=== PATIENT | male | born 1965 | race Caucasian/White ===

== ENCOUNTER 2024-05-22 20:08 | Emergency (ER) | payer MEDICAID ==
[~2024-05-22] VITALS: Ht 182.9 cm; Wt 97.3 kg
[2024-05-22] MEDS ORDERED: GNP B-50 COMPL0.4 MG PO (20:30)
[2024-05-22] MEDS ORDERED: DULOXETINE60 MG PO (20:30)
[2024-05-22] MEDS ORDERED: DONEPEZIL HCL10 MG PO (20:30)
[2024-05-22 20:54] LABS: BASO # 0.02 K/mm3 (0.02-0.10); EOS # 0.32 K/mm3 (0.04-0.40); EOS % 3.6 % (0.0-4.0); HEMATOCRIT 47.3 % (42.0-52.0); HEMOGLOBIN 16.2 g/dL (13.5-18.0); LYMPH# 1.85 K/mm3 (1.50-4.00); MEAN CELL VOLUME 92 fl (78-100); MEAN CORPUSCULAR HEMOGLOBIN 31 pg (27-31); MEAN CORPUSCULAR HGB CONC 34 g/dL (33-37); MEAN PLATELET VOLUME 8.8 fl (7.4-10.4); MONO # 0.68 K/mm3 (0.20-0.80); NEU # 6.08 K/mm3 (1.40-6.50); PLATELET COUNT 216 K/mm3 (130-400); RED BLOOD COUNT 5.17 M/mm3 (4.20-5.60); RED CELL DISTRIBUTION WIDTH 13.6 % (11.5-14.5)
[2024-05-22 21:02] LABS: ALBUMIN 4.3 g/dL (3.4-4.8); SODIUM 141 mmol/L (136-145)
[2024-05-22 21:04] LABS: GLUCOSE 118 mg/dL (75-110); TOTAL PROTEIN 7.1 g/dL (6.2-8.1)
[2024-05-22 21:05] LABS: CARBON DIOXIDE 20 mmol/L (23-31)
[2024-05-22 21:06] LABS: TOTAL BILIRUBIN 0.3 mg/dL (0.2-1.2)
[2024-05-22 21:09] LABS: AST-SGOT 33 U/L (5-34)
[2024-05-22 21:11] LABS: ALT/SGPT 69 U/L (0-55)
[2024-05-22 21:13] LABS: ACETAMINOPHEN < 1 ug/mL; ALCOHOL IN-HOUSE < 10 mg/dL (<10)
[2024-05-23 00:14] VITALS: BP 153/106
== END 2024-05-23 00:15 | disposition home or self-care (01) ==
LOC: ED 20:08
PROVIDERS: Physician Assistant
DX: F32.A Depression, unspecified (principal)

== ENCOUNTER → 2024-08-15 | Outpatient (CLI) | payer MEDICAID ==
[~2024-08-15] MED LIST: DONEPEZIL HCL10 MG PO; DULOXETINE60 MG PO; GNP B-50 COMPL0.4 MG PO
== END ==
LOC: RAD 07:45
DX: R79.89 Other specified abnormal findings of blood chemistry (principal); R10.11 Right upper quadrant pain